=== PATIENT | female | born 1960 | race Caucasian/White ===

== ENCOUNTER 2018-12-08 20:10 | Emergency (ER) | payer OTHER, SELFPAY ==
[2018-12-08 20:38] VITALS: BP 141/78; PULSE 66; RESP 20; TEMP 36.2; O2SAT 99
--- NOTE | 2018-12-08 21:50 | DI.RAD.S_ITS ---
PROCEDURE: XR FOOT RT MIN 3V INDICATIONS: right foot swelling TECHNIQUE: 3 views of the foot were acquired. COMPARISON: None. FINDINGS: Bones: There is diffuse soft tissue swelling of the right foot without underlying osseous abnormalities. Specifically, no acute fracture or osseous erosions identified. No periosteal reaction. Alignment is anatomic. No suspicious bony lesions. Soft tissues: No tibiotalar joint effusion. Achilles tendon appears normal. IMPRESSION: Right foot soft tissue swelling without underlying fracture, dislocation, or osseous erosions. Dictated by: James Simon M.D. on 12/08/2018 22:31 Approved by: James Simon M.D. on 12/08/2018 at 22:33
--- NOTE | 2018-12-08 21:53 | ED_ITS ---
HPI - Extremity Problem General Chief complaint: Extremity Problem,Nontraumatic Stated complaint: RT FOOT SWELLING Time Seen by Provider: 12/08/18 21:49 Source: patient Mode of arrival: ambulatory Limitations: no limitations History of Present Illness HPI Narrative: Patient is a 57-year-old female here for evaluation of right foot swelling and redness and pain. States has been going on for the past day. No fevers. No specific trauma however she does state that it hurts for her to walk. She states that if it was both ankles that were swollen she would just think that it would be fluid backup but she would not have come to the emergency department however she noticed that there was some redness and warmth and pain to the top of her foot. There are no breaks in the skin. She has never injured her foot the past. Related Data Previous Rx's Medication Instructions Recorded cephalexin 500 mg PO QID 7 Days #28 tab 12/08/18 Allergies Allergy/AdvReac Type Severity Reaction Status Date / Time latex Allergy Blister Verified 12/08/18 20:43 Sulfa (Sulfonamide Allergy Nausea Verified 12/08/18 20:42 Antibiotics) Review of Systems Constitutional Denies fever(s) and Denies weakness ENT Ears, Nose, Mouth, and Throat: Denies disequilibrium Cardiovascular Denies dyspnea Respiratory Denies dyspnea Gastrointestinal Gastrointestinal: Denies abdominal pain Musculoskeletal Denies tingling Comments: Right foot pain and swelling Integumentary/Breasts Comments: Redness the top of the right foot Neurologic Denies behavioral changes, Denies tingling, Denies disequilibrium and Denies weakness Psychiatric Denies behavioral changes Hematologic/Lymphatic Denies easy bleeding and Denies easy bruising [facility] Surgical History No pertinent past surgical history (Acute) Social History Smoking Status: Never smoker Social History Smoking Status: Never smoker Exam Initial Vital Signs Initial Vital Signs: Vital Signs Temperature 97.2 F L 12/08/18 20:38 Pulse Rate 66 12/08/18 20:38 Respiratory Rate 20 12/08/18 20:38 Blood Pressure 141/78 H 12/08/18 20:38 Pulse Oximetry 99 12/08/18 20:38 Const General: cooperative, comfortable, well developed, well groomed and No acute distress Orientation: alert, awake and oriented x3 HENMT Head: normal to inspection and normocephalic Resp Effort & Inspection: normal respiratory effort Cardio Pulses: dorsalis pedis present on the right Skin Other: Patient with redness and warmth on the top of the right foot extending up to the midfoot. No vesicles. No breaks in the skin. Neuro General: alert and awake Cognition: normal cognition Speech: speech normal Sensory Exam: no sensory deficits noted Extrem Other: Patient with swelling of the right foot from the ankle distal. She does have full range of motion of the right ankle. Right knee is unremarkable. Psych Appearance: grossly normal and well kempt Course Orders Ordered: ED Orders 12/08/18 21:50 XR foot RT min 3V Stat Discontinued Medications Cephalexin HCl (Keflex) 500 mg PO NOW ONE Stop: 12/08/18 22:54 Last Admin: 12/08/18 23:05 Dose: 500 mg Vital Signs - 8 hr 12/08/18 20:38 12/08/18 22:44 Temperature 97.2 F L Pulse Rate 66 65 Respiratory Rate 20 18 Blood Pressure 141/78 H Blood Pressure [Right Arm] 118/69 Pulse Oximetry 99 100 MDM - Extremity (Nontraumatic) Imaging Data X-ray foot: Radiologist's impression: [address] [address] XRay Report Signed Patient: JOSE ELIAS [facility]A [facility]#: [id number] : 2Acct:[id number] Age/Sex: 57 / FDate of Service: 12/08/18 Loc: ED Accession Number: [id number] Procedure: XR foot RT min 3V Ordering Provider: Robert Acosta D.O. PROCEDURE: XR FOOT RT MIN 3V INDICATIONS: right foot swelling TECHNIQUE: 3 views of the foot were acquired. COMPARISON: None. FINDINGS: Bones: There is diffuse soft tissue swelling of the right foot without underlying osseous abnormalities. Specifically, no acute fracture or osseous erosions identified. No periosteal reaction. Alignment is anatomic. No suspicious bony lesions. Soft tissues: No tibiotalar joint effusion. Achilles tendon appears normal. IMPRESSION: Right foot soft tissue swelling without underlying fracture, dislocation, or osseous erosions. Dictated by: James Simon M.D. on 12/08/2018 22:31 Approved by: James Simon M.D. on 12/08/2018 at 22:33 MDM Narrative Medical decision making narrative: Patient is neurovascularly intact. The x- rays show no acute fractures. This was ordered secondary to the pain with walking in the swelling of her foot. This is a unilateral foot swelling. It does not extend proximal to the ankle. Her left foot is unremarkable. She does have redness and warmth of the top of the right foot when compared to the left foot. She has no breaks in the skin. Given the redness and warmth in the unilateral swelling there is concern for cellulitis. Low suspicion for abscess. Low suspicion for septic joint. Will start on a course of antibiotics. Not 100% convinced that the swelling of the foot to secondary to this redness however feel that a trial of antibiotics is not unreasonable in this situation. I have low suspicion for DVT in the right lower extremity. Informed the patient that if her symptoms worsen despite the antibiotics or she develops any new symptoms she should return to the emergency department for further evaluation. Both her and her were bedside expressed understanding. No indication for crutches. Discharge Plan Departure Patient Disposition: Home Clinical Impression: Cellulitis Qualifiers: Site of cellulitis: extremity Site of cellulitis of extremity: lower extremity Laterality: right Qualified Code(s): L03.115 - Cellulitis of right lower limb Discharge Date/Time: 12/08/18 23:09 Interventions: ED Discharge Assessment Last Done: 12/08/18 23:08 Instructions: DI for Cellulitis -- Adult Activity Restrictions/Additional Instructions: Keep your foot elevated. Take the antibiotics as directed. Contact your primary provider for follow-up. Return to the emergency department for any new or worsening symptoms Prescriptions: New cephalexin 500 mg tablet 500 mg PO QID 7 Days Qty: 28 RF: 0
[2018-12-08 22:44] VITALS: BP 118/69; PULSE 65; RESP 18; O2SAT 100
[2018-12-08] MEDS: cephALEXin 250 MG CAPSULE 500 MG PO (23:05)
--- NOTE | 2019-02-01 14:46 | ONC.SCHED ---
Called Patient to Schedule. Patient is currently a Patient of Dr. Cartwright at [facility] and has been for several Months. She has no desire to switch over to [facility] as she lives in [place]
== END 2018-12-08 23:09 | disposition home or self-care (01) ==
PROVIDERS: Emergency Provider Emergency Medicine
DX: L03.115 Cellulitis of right lower limb (principal)
CPT/HCPCS: 73630; 99282; 99283